=== PATIENT | male | born 1945 | race Caucasian/White ===

== ENCOUNTER 2016-04-05 09:42 | Outpatient (RCR) | END 2016-05-04 | LOC: PUL.REHAB 09:42 | PROVIDERS: ATTEND Internal Medicine Pulmonary Disease | DX: J44.9 Chronic obstructive pulmonary disease, unspecified (principal) ==

== ENCOUNTER 2016-05-05 07:24 | Outpatient (RCR) | END 2016-05-19 15:50 | disposition home or self-care (01) | LOC: PUL.REHAB 07:24 | PROVIDERS: ATTEND Internal Medicine Pulmonary Disease | DX: J44.9 Chronic obstructive pulmonary disease, unspecified (principal) ==